=== PATIENT | male | born 1945 | race Caucasian/White ===

== ENCOUNTER 2025-09-15 13:40 | Outpatient (CLI) | payer MEDICARE, SELFPAY ==
--- OUTSIDE RECORDS SUMMARY | 2025-09-14 15:36 | XMS_ITS | Encounter Summary ---
Author Organization [facility] Address [address] [place] [address] Care Team Providers Care Service Loss Control Consultant Name Role Phone Karthikeyan Perez MD Primary Care Provider [phone] Alexis Penn MD Unavailable [phone] Reason for Visit * Physical Medicine (Routine) - Closed Specialty Diagnoses / Procedures Referred By Contac t Referred To Contact PHYSICAL THERAPY / [facility] Physical Therapy Diagnoses Lumbar radiculopathy Procedures OFFICE/OUTPATIENT NEW LOW MDM 30-44 MINUTES OFFICE/OUTPT VISIT,NEW,LEVL IV OFFICE/OUTPT VISIT,NEW,LEVL V OFFICE/OUTPT VISIT,EST,LEVL III OFFICE/OUTPT VISIT,EST,LEVL IV OFFICE/OUTPT VISIT,EST,LEVL V London Crowley MD [address] [place] [address] Phone: tel: fax: [facility] [place] [address] Phone: tel: fax: Referral ID Status Reason Start Date Expiration Date V isits Requested Visits Authorized [id number] Closed Physical Therapy 06/22/2025 06/22/2026 10 10 Encounter Details Date Type Department Care Team (Late st Contact Info) Description 09/14/2025 3:36 PM [facility] Hospital Encounter [facility] [place], [place] [id number] London Crowley MD [address] [place] [address] Kateryna Brownlee DPT 1 [place] [address] Arrived Social History Tobacco Use Types Packs/Day Years Used Date Smoking Tobacco: Former Cigarettes 1 10 Q uit: 1990 Passive Smoke Exposure: Never Smokeless Tobacco: Never Alcohol Use Standard Drinks/Week Comments Yes 3.3 (1 standard drink = 0.6 oz p ure alcohol) 0-2 drinks/week OASIS D0700: Social Isolation Answer Da te Recorded Frequency of experiencing loneliness or isolatio n Never 08/07/2023 OASIS A1250: Transportation Answer Date Recorded Lack of Transportation (Medical) No 08/07/2023 Lack of Transportation (Non-Medical) No 08/07/2023 Patient Unable or Declines to Respond No 08/07/2023 OASIS B1300: Health Literacy Answer Simon e Recorded Frequency of needing help to read materials from doctor or pharmacy Never 08/07/2023 PHQ-2 Answer Date Recorded Patient Health Questionnaire-2 Score 0 12/03/2023 Sex and Gender Information Value Date Recorded Sex Assigned at Male 01/04/2025 1:10 PM EKG MONITOR Legal Sex Male 8:26 PM CDT Gender Identity Not on file Sexual Orientation Straight 02/11/2022 8: 14 AM CDT documented as of this encounter Functional Status * Are you deaf or do you have serious difficulty hearing Answer Date of Assessment Author Status No 07/31/2023 3:00 PM CDT Abby Kruger RN Active * Are you blind or do you have serious difficulty seeing, even when wearing glasses? Answer Date of Assessment Author Status No 07/31/2023 3:00 PM CDT Abby Kruger RN Active * Do you have serious difficulty walking or climbing stairs? Answer Date of Assessment Author Status No 07/31/2023 3:00 PM CDT Abby Kruger RN Active * Do you have difficulty dressing or bathing? Answer Date of Assessment Author Status No 07/31/2023 3:00 PM CDT Abby Kruger RN Active * Because of a physical, mental, or emotional condition, do you have difficulty doing errands alone such as visiting a doctor's office or shopping? Answer Date of Assessment Author Status No 07/31/2023 3:00 PM Abby Meredith RN Active documented as of this encounter Mental Status * Because of a physical, mental, or emotional condition, do you have serious difficulty concentrating, remembering, or making decisions? Answer Entry Date Author Status No 07/31/2023 3:00 PM Abby Meredith RN Active documented in this encounter Progress Notes * Kateryna Brownlee, SHORTYT - 09/14/2025 3:45 PM CST Physical Therapy Visit Note: Patient Name: Sawyer Hutson Diagnosis: Lumbar radiculopathy (primary encounter diagnosis) Hip tightness Decreased rom of lumbar spine Itb syndrome Gait abnormality SUBJECTIVE Therapy Visit Start Time: 1545 Stop Time: 1623 Time Calculation (min): 38 min Treatment Day: 10 Total Approved Visits: 10 visits - re-eval Authorization Expiration Date: MCR Replacement - [facility] Guidelines Therapy Plan of Care: Eval 07/22/2025; STG's 5 visits; LTG's 10 visits Current Therapy Orders: Eval & Treat - 2x5 Diagnosis: Lumbar Radiculopathy Referring Provider: London Crowley MD Consulting Provider: Karthikeyan Perez MD Subjective Note: Patient reports having a good day thus far with minimal and intermittent pain in the R hip. He reports having upcoming laminectomy the day before . Response to prior treatment: good - no adverse events Compliance to Home Program: FAIR - 1-2x/week Reported Falls since last visit: none Medications changes since last visit : none Pain Current Location of Pain: R hip Current Pain Level: 11/12 Other (comments): reports it is aching OBJECTIVE Treatment provided today: Therapeutic Exercise - 66099 Number of Minutes - 68822: 38 Cardio Equipment: NuStep lvl 5 x6 min Exercise: Seated 3-way blue SB rollouts 15x5 sec H ea Exercise: Seated lumbar rotation AROM x10 each direction followed by seated rotation with red TB 10x each side Exercise: HELD TIME - Seated lumbar extension 10x5 sec H ea Exercise: Supine LTR 2 min Exercise: Supine DKTC 2 min - with Red SB under LEs Exercise: Seated hamstring strech 3 x 30 seconds B Exercise: seated upward cross-body chops with red TB x10 each Exercise: seated rows with Red TB 2x10 Exercise: seated shoulder extensions with Red TB 2x10 Exercise: review of log rolling to assume position throughout treatment Home Exercise Program Current Home Exercise Program: cont with current program - no changes made on this date Education Was Education Provided: Yes Topic: importance of log rolling with upcoming laminectomy, importance of consistency of HEP Recipient: Patient Method: Verbal Response: Verbalized understanding, Asked questions Barriers: None ASSESSMENT Assessment Note: Session continued with focus on spine and hip mobility along with new additions for postural strength training to support upright posture. Patient did well with all additions and reported appropriate fatigue. During DKTC and LTR there was noteable grimacing and patient reported increase in R hip pain at those times. Patient denied any persisting increase in pain at end of session. Response to Treatment : fair - intermittent increases in R hip pain PLAN Plan Changes: added resistance band movements for posterior chain and core facilitation to help with postural support Next Visit Plan: Continue to progress postural facilitation as able Total Time Total Time in Minutes: 38 Timed Code Treatment Minutes : 38 MONITOR documented in this encounter Plan of Treatment Upcoming Encounters Date Type Department Care Team (Late st Contact Info) Description 09/16/2025 2:15 PM EKG MONITOR Appointment [facility] [place] [place] [address] London Crowley MD [address] [place] [address] Mary Godfrey, PT 3 [facility] [address] [place] [address] 09/21/2025 1:30 PM EKG MONITOR Appointment [facility] [place] [address] Radha Gramajo, MAT CLEANING MACHINE OPERATOR 09/23/2025 2:15 PM EKG MONITOR Appointment [facility] [address] [facility] [place] [address] Mary Godfrey, PT 3 [facility] [address] [place] [address] 01/04/2026 2:00 PM EKG MONITOR Appointment [facility] [place] [address] Ginny Rahman, PERFORMANCE TEST CONSULTANT 3 [facility] [address] [place] [address] 01/10/2026 1:45 PM CDT Office Visit [facility] THREE [facility], [address] [place] [address] Alexsi Penn MD Three [facility]. [address] [place] [address] Ginny Rahman FNP 3 [facility] [address] [place] [address] 01/26/2026 10:40 AM CDT Office Visit [facility] Mult[facility]pecialty Care - [facility] 3 [facility], [address] [place] [address] Elroy Stout MD 3 [place] [address] 03/13/2026 1:20 PM CDT Office Visit [facility] Multispecialty Care - [facility] 3 [facility], [address] [place] [phone] Vivek Bolivar MD 3 [facility] [place] [address] documented as of this encounter Goals Goal Patient Goal Type Associated Problems Recent Progress Patient-Stated? Author Health - patient able to perform ADLs independently Lifestyle Ancelmo Hung, RN documented as of this encounter Visit Diagnoses Diagnosis Lumbar radiculopathy- Primary Thoracic or lumbosacral neuritis or radiculitis, unspecified Hip tightness Other symptoms referable to pelvic joint Decreased ROM of lumbar spine ITB syndrome Gait abnormality Abnormality of gait documented in this encounter Care Teams Service Loss Control Consultant Relationship Specialty Start Date End Date Karthikeyan Perez MD PCP - General FAMILY PRACTICE 01/22/20 Alexis Penn MD Three [facility]. [address] [place] [address] Consulting Physician CARDIOVASCULAR DISEASE 07/17/23 documented as of this encounter
--- NOTE | ~2025-09-15 | XR_ITS ---
EXAMINATION: XR chest 2V, 09/15/2025 15:16 TREASURY AGENT HISTORY: M51.16 - Intervertebral disc disorders with radiculopathy... COMPARISON: No comparisons available. Technique: 2 views obtained. Findings: The lungs are clear, no effusion. No pneumothorax. Heart is normal size. Mediastinal and hilar contours are within normal limits. Bony thorax no acute abnormality. Impression: No acute cardiopulmonary abnormality. Reviewed, dictated and finalized at location P. SURY AGENT Impression: No acute cardiopulmonary abnormality.
--- OUTSIDE RECORDS SUMMARY | 2025-09-15 14:17 | XMS_ITS | Encounter Summary ---
Author Organization [facility] Address [address] [place] [address] Care Team Providers Care Lead Clinical Research Coordinator Name Role Phone Karthikeyan Perez MD Primary Care Provider [phone] Alexis Penn MD Unavailable [phone] Encounter Details Date Type Department Care Team (Late st Contact Info) Description 01/24/2020 Hospital Follow-up Call [facility] [place] [address] Sasha Novak, Circus Trainer Social History Tobacco Use Types Packs/Day Years Used Date Smoking Tobacco: Former Cigarettes Smokeless Tobacco: Never Sex and Gender Information Value Date Recorded Sex Assigned at Male 01/04/2025 1:10 PM AVIATION SUPPORT EQUIPMENT REPAIRER Legal Sex Male 8:26 PM CDT Gender Identity Not on file Sexual Orientation Straight 02/11/2022 8: 14 AM CDT documented as of this encounter Functional Status * RETIRED Are you deaf or do you have serious difficulty hearing Answer Date of Assessment Author Status No 01/20/2020 1:00 AM CDT Activ e * RETIRED Are you blind or do you have serious difficulty seeing, even when wearing glasses? Answer Date of Assessment Author Status No 01/20/2020 1:00 AM CDT Activ e * Do you have serious difficulty walking or climbing stairs? Answer Date of Assessment Author Status No 01/20/2020 1:00 AM CDT Michelle Orellana RN Active * Do you have difficulty dressing or bathing? Answer Date of Assessment Author Status No 01/20/2020 1:00 AM CDT Michelle Orellana RN Active * Because of a physical, mental, or emotional condition, do you have difficulty doing errands alone such as visiting a doctor's office or shopping? Answer Date of Assessment Author Status No 01/20/2020 1:00 AM Michelle Goins RN Active documented as of this encounter Mental Status * Because of a physical, mental, or emotional condition, do you have serious difficulty concentrating, remembering, or making decisions? Answer Entry Date Author Status No 01/20/2020 1:00 AM Michelle Goins RN Active documented in this encounter Plan of Treatment Upcoming Encounters Date Type Department Care Team (Late st Contact Info) Description 09/16/2025 2:15 PM AVIATION SUPPORT EQUIPMENT REPAIRER Appointment [facility] Outpatient [place] [address] London Crowley MD [address] [place] [address] Mary Godfrey, PT 3 [facility] [address] [place] [address] 09/21/2025 1:30 PM AVIATION SUPPORT EQUIPMENT REPAIRER Appointment [facility] Outpatient [place] [address] Radha Gramajo, ELECTRIC SIGN ASSEMBLER 09/23/2025 2:15 PM AVIATION SUPPORT EQUIPMENT REPAIRER Appointment [facility] Outpatient [place] [address] Mary Godfrey, PT 3 [facility] [address] [place] [address] 01/04/2026 2:00 PM AVIATION SUPPORT EQUIPMENT REPAIRER Appointment [facility] Non Invasive [place] [address] Ginny Rahman FNP 3 [facility] [address] [place] [address] 01/10/2026 1:45 PM CDT Office Visit [facility] [address] [place] [address] Alexis Penn MD Three [facility]. [address] [place], [place] [address] Ginny Rahman, SENIOR ELECTRONICS TECHNICIAN 3 [facility] [address] [place], [place] [address] 01/26/2026 10:40 AM CDT [facility] 3 [facility], [address] [place] [place] [address] Elroy Stout MD 3 [facility] [address] 03/13/2026 1:20 PM CDT [facility] 3 [facility], [address] [place] [address] Vivek Bolivar MD 3 [facility] [place] [address] documented as of this encounter Visit Diagnoses Not on filedocumented in this encounter Care Teams Lead Clinical Research Coordinator Relationship Specialty Start Date End Date Karthikeyan Perez MD PCP - General FAMILY PRACTICE 01/22/20 Alexis Penn MD [facility]. [address] [address] Consulting Physician CARDIOVASCULAR DISEASE 07/17/23 documented as of this encounter
--- OUTSIDE RECORDS SUMMARY | 2025-09-15 14:17 | XMS_ITS | Clinical Summary ---
Author Organization [facility] Address [address] [place] [address] Care Team Providers Care Livestock Inspector Name Role Phone Karthikeyan Perez MD Primary Care Provider [phone] Allergies Active Allergy Reactions Criticality Noted Date Comments No Known Allergies Other (See comments) Low 019 Reaction: Medications aspirin 81 mg chewable tablet Take 1 tablet (81 mg total) by mouth daily Active solifenacin (VESIcare) 10 mg tablet Take 1 tablet (10 mg total) by mouth daily 1 Active amLODIPine (NORVASC) 10 mg tablet Take 1 tablet (10 mg total) by mouth daily 2 Active atorvastatin (LIPITOR) 40 mg tablet Take 1 tablet (40 mg total) by mouth daily 2 Active finasteride (PROSCAR) 5 mg tablet 2 Active hydroCHLOROthiazid e (HYDRODIURIL) 25 mg tablet Take 1 tablet (25 mg total) by mouth daily 2 Active lisinopriL (PRINIVIL,ZESTRIL) 40 mg tablet Take 1 tablet (40 mg total) by mouth daily 2 Active tamsulosin (FLOMAX) 0.4 mg extended release capsule 2 Active levothyroxine (SYNTHROID) 112 mcg tabletIndications: Iatrogenic hypothyroidism TAKE 1 TABLET(112 MCG) BY MOUTH GLOVE FINISHER BEFORE BREAKFAST 90 tablet 1 5 Active Active Problems Problem Noted Date Diagnosed Date BMI 34.0-34.9,adult 06/28/2024 Tachycardia 04/28/2020 Assessment & Plan (04/10/2021 1:02 PM CDT): Tachycardic to 110s in clinic this morning, which is new by my records. Regular rhythm, so suspect sinus, but etiology unclear as he has been 50s and 60s in past visits. No other abnormal exam findings. Will check thyroid function to ensure he is not taking too much thyroid hormone, but if normal, would encourage him to contact his PCP. Pt mentioned that HRs have more recently been in the 90s. Assessment & Plan (04/28/2020 9:31 AM CDT): Tachycardic to 110s in clinic this morning, which is new by my records. Regular rhythm, so suspect sinus, but etiology unclear as he has been 50s and 60s in past visits. No other abnormal exam findings. Will check thyroid function to ensure he is not taking too much thyroid hormone, but if normal, would encourage him to contact his PCP. Pt mentioned that HRs have more recently been in the 90s. 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 Will recheck given today and adjust if necessary, particularly in the setting of his tachycardia. Assessment & Plan (04/28/2020 9:27 AM CDT): TFTs have been normal on this levothyroxine dose in the past. Will recheck given today and adjust if necessary, particularly in the setting of his tachycardia. Assessment & Plan (04/29/2019 9:49 AM CDT): Recent TFTs showed a low normal TSH but slightly high free T4, so I decreased his dose from 137 to 125 mcg daily. Hypertension 06/16/2017 Assessment & Plan (04/10/2021 1:02 PM CDT): Controlled today, though he isn't exactly sure which medications he is on. Assessment & Plan (04/28/2020 9:28 AM CDT): Controlled today, though he isn't exactly sure which medications he is on. Assessment & Plan (04/29/2019 9:50 AM CDT): BP was high when he arrived in clinic, but he felt ok and says he has white coat hypertension. He will follow up on his BP and talk to his PCP if it remains elevated. Resolved Problems Problem Noted Date Diagnosed Date Resolved Date Multinodular goiter 06/16/2017 04/27/20 19 Goiter 04/24/2017 04/27/2019 Encounters Date Type Department Care Team Description 06/29/2025 11:40 AM CDT Office Visit [facility] Endocrinology Metabolism and Lipid [address] [facility] Medicine [address]th [place] [address] [place] [address] Lalitha Lancaster MD BMI 34.0-34.9,adult (Primary Dx); Iatrogenic hypothyroidism from Last 3 Months Surgical History Surgery Date Site/Laterality Comments ME TONSILLECTOMY & ADENOIDEC LIANA <AGE 14 Tonsillectomy With Adenoidectomy - (Added by TW Conv) Medical History Medical History Date Comments Personal history of other en docrine, nutritional and metabolic disease History of hyperthyr oidism - (Added by TW Conv) Family History Medical History Relation Name Comments Dementia Father Family history of dementia - (Added by TW Conv) Stomach cancer Paternal Grandfather Famil y history of malignant neoplasm of stomach - (Added by TW Conv) Relation Name Status Comments Father Paternal Grandfather Social History Tobacco Use Types Packs/Day Years Used Date Smoking Tobacco: Former Tobacco Cessation:Counseling Given: Not Answered Sex and Gender Information Value Date Recorded Sex Assigned at Not on file Legal Sex Male 3:13 PM DIVERSIFIED CROPS II FARMWORKER Gender Identity Not on file Sexual Orientation Not on file Last Filed Vital Signs Vital Sign Reading Time Taken Comments Blood Pressure 142/78 06/29/2025 11:45 AM CDT Pulse 103 06/29/2025 11:45 AM CDT Temperature 36.9 C (98.4 F) 06/29/2025 11:45 AM CDT Respiratory Rate - - Oxygen Saturation 96% 11/12/2017 11:40 AM DIVERSIFIED CROPS II FARMWORKER Inhaled Oxygen Concentration - - Weight 102.1 kg (225 lb) 06/29/2025 11:45 AM CDT Height 173.2 cm (5' 8.2) 06/29/2025 11:45 AM CD T Body Mass Index 34.01 06/29/2025 11:45 AM CDT Plan of Treatment Health Maintenance Due Date Last Done Comments Depression Screening 1945 Fall Risk Assessment 1945 Hepatitis C Screening 1945 DTaP/Tdap/Td Vaccine (1 - Tdap) 1958 Hepatitis B Screening 1965 Abdominal Aortic Aneurysm (A AA) Screen 2012 Well Visit 65+ 2012 Covid-19 Vaccine (4 - 2024-2 6 season) 2025 09/02/2021, 01/17/2021, 12/20/2020 Influenza Vaccine (#1) 2025 , 08/03/2019, 07/22/2019, Additional history exists Zoster Vaccine Completed 06/30/2019, 11/2018, 08/05/2017 Pneumococcal vaccine 65+ Completed 08/03/2019, 07/05 Insurance AET MEDICARE [facility] MEDICARE ADVANTAGE Care Teams Livestock Inspector Relationship Specialty Start Date End Date Karthikeyan Perez MD PCP - General 04/24/17
--- OUTSIDE RECORDS SUMMARY | 2025-09-15 14:17 | XMS_ITS | Encounter Summary ---
Author Organization [facility] Address [address] [place] [address] Care Team Providers Care Proof Coin Collector Name Role Phone Karthikeyan Perez MD Primary Care Provider [phone]- [phone] Alexis Penn MD Unavailable Encounter Details Date Type Department Care Team (Latest Contact Info) Description 09/14/2025 Travel Social History Tobacco Use Types Packs/Day Years [...] Sex Assigned at Male 01/04/2025 1:10 PM FURNACE STOCK INSPECTOR Legal Sex Male 8:26 PM CDT Gender [...] Assessment Author Status No 07/31/2023 3:00 PM DAMIANT Abby Kruger RN Active * Do you have serious difficulty walking or climbing stairs? Answer Date of Assessment Author Status No 07/31/2023 3:00 PM DAMIANT Abby Kruger RN Active * Do you have difficulty dressing or bathing? Answer Date of Assessment Author Status No 07/31/2023 3:00 PM DAMIANT Abby Kruger RN Active * Because of [...] Meredith RN Active documented in this encounter Plan of Treatment Upcoming Encounters Date Type Department Care Team (Late st Contact Info) Description 09/16/2025 2:15 PM FURNACE STOCK INSPECTOR Appointment [facility] [place] [address] London Crowley MD [address] [place] [address] Mary Godfrey, PT 3 [facility] [address] [place] [address] 09/21/2025 1:30 PM FURNACE STOCK [place] [address] Radha Gramajo, CORE EXTRUDER 09/23/2025 2:15 PM FURNACE STOCK INSPECTOR Appointment [facility] [address] [facility] [place] [address] Mary Godfrey, PT 3 [facility] [address] [place] [address] 01/04/2026 2:00 PM FURNACE STOCK INSPECTOR Appointment [facility] Non Invasive Cardiology [address] [facility] [place] [address] Ginny Rahman FNP 3 [facility] [address] [place] [address] 01/10/2026 1:45 PM CDT Office Visit [facility] THREE [facility], [address] [place] [address] Alexis Penn MD Three [facility]. [address] [place] [address] Ginny Rahman FNP 3 [facility] [address] [place] [address] 01/26/2026 10:40 AM CDT Office Visit [facility]ty Care - [facility] 3 [facility], [address] [place] [phone] Elroy Stout MD 3 [place] [address] 03/13/2026 1:20 PM CDT Office Visit [facility]pecialty Care - [facility] 3 [facility], [address] [place] [phone] Vivek Bolivar MD [address] [facility] [place], [place] [id number] documented as of this encounter Goals Goal Patient Goal Type Associated Problems Recent Progress Patient-Stated? Author Health - patient able to perform ADLs independently Lifestyle No Ancelmo Gilliland, RN documented as of this encounter Visit Diagnoses Not on filedocumented in this encounter Care Teams Proof Coin Collector Relationship Specialty Start Date End Date Karthikeyan Perez MD PCP - General FAMILY PRACTICE 01/22/20 Alexis Penn MD Three [facility]. [address] [place] [address] Consulting Physician CARDIOVASCULAR DISEASE 07/17/23 documented as of this encounter
--- OUTSIDE RECORDS SUMMARY | 2025-09-15 14:17 | XMS_ITS | Clinical Summary ---
Author Organization [facility] Address [address] [place] [address] Care Team Providers Care Patient Care Nursing Assistant Name Role Phone Karthikeyan Perez MD Primary Care Provider [phone] Alexis Penn MD Unavailable [phone] Allergies No known active allergies Medications atorvastatin 40 MG tabletIndicatio ns:HLD Take 1 tablet (40 mg total) by mouth nightly at bedtime. 30 tablet 01/22/2020 Active levothyroxine (SYNTHROID) 112 MCG tabletIndicatio ns:Thyroid Take 1 tablet (112 mcg total) by mouth daily. Indications: Thyroid 10/24/2022 Active omeprazole (PRILOSEC) 40 MG capsuleIndicati ons:GERD Take 1 capsule (40 mg total) by mouth daily. Indications: GERD 12/26/2022 Active aspirin 81 MG chewable tablet Chew 1 tablet (81 mg total) by mouth daily. Active hydroCHLOROthia zide (HYDRODIURIL) 25 MG tablet Take 1 tablet (25 mg total) by mouth daily. 10/21/2023 Active lisinopril (PRINIVIL) 40 MG tablet Take 1 tablet (40 mg total) by mouth daily. 10/21/2023 Active solifenacin succinate (VESICARE) 10 MG Tab Take 1 tablet (10 mg total) by mouth daily. 10/29/2023 Active finasteride (PROSCAR) 5 MG tablet Take 1 tablet (5 mg total) by mouth daily. 10/29/2023 Active tamsulosin (FLOMAX) 0.4 MG Cap Take 1 capsule (0.4 mg total) by mouth daily. 10/29/2023 Active amLODIPine (NORVASC) 5 MG tablet Take 1 tablet (5 mg total) by mouth daily. 01/19/2024 Active Active Problems Problem Noted Date Diagnosed Date S/P total hip arthroplasty 08/01/2023 Status post total replacement of right hip 07/31 Primary osteoarthritis of right hip 06/13/2023 Overview (06/13/2023): Added automatically from request for surgery [id number] Difficulty swallowing 01/29/2023 Overview (01/29/2023): Added automatically from request for surgery [id number] Tachycardia 04/28/2020 Overview (06/19/2021): Last Assessment & Plan: Tachycardic to 110s in clinic this morning, [...] have more recently been in the 90s. Altered mental status, unspecified 01/20/2020 Iatrogenic hypothyroidism 11/24/2017 Overview (03/15/2020): Last Assessment & Plan: Recent TFTs showed a low normal TSH but slightly high free T4, so I decreased his dose from 137 to 125 mcg daily. Hypertension 06/16/2017 Overview (03/15/2020): Last Assessment & Plan: BP was high when he arrived in clinic, but he felt ok and says he has white coat hypertension. He will follow up on his BP and talk to his PCP if it remains elevated. Encounters Date Type Department Care Team Description 09/14/2025 3:36 PM IOS SOFTWARE ENGINEER Hospital Encounter [facility] [place] [address] [place] [address] London Crowley MD Ratermann, Madeline R, DPT Arrived 09/14/2025 Travel 09/13/2025 Telephone [facility] [address] [place] [address] Alexis Penn MD Surgical Clearance 09/12/2025 1:40 PM IOS SOFTWARE ENGINEER Office Visit [facility] [address] [place] [address] Vivek Bolivar MD Follow Up 09/12/2025 Travel 09/08/2025 2:11 PM IOS SOFTWARE ENGINEER - 09/08/2025 11:59 PM IOS SOFTWARE ENGINEER Hospital En[facility] [place] [address] London Crowley MD McPherson, Abigail E, PT Discharge Disposition: Home or Self Care (Routine Discharge) 09/08/2025 Travel 08/31/2025 2:09 PM CDT - 08/31/2025 11:59 PM CDT Hospital Encounter [facility] [place] [address] London Crowley MD Lewis, Molly A, PATTERN CLERK Discharge Disposition: Home or Self Care (Routine Discharge) 08/31/2025 Travel 08/29/2025 2:10 PM CDT - 08/29/2025 11:59 PM CDT Hospital Encounter [facility] [place] [place] [address] London Crowley MD Witte, Lauren E, PATTERN CLERK Discharge Disposition: Home or Self Care (Routine Discharge) 08/29/2025 Travel 08/26/2025 2:13 PM CDT - 08/26/2025 11:59 PM CDT [facility] [place] [place] [address] London Crowley MD Lewis, Molly A, PATTERN CLERK Discharge Disposition: Home or Self Care (Routine Discharge) 08/26/2025 Travel 08/24/2025 1:53 PM CDT - 08/24/2025 11:59 PM CDT [facility] [place] [address] London Crowley MD Lewis, Molly A, PATTERN CLERK Discharge Disposition: Home or Self Care (Routine Discharge) 08/24/2025 Travel 08/11/2025 1:24 PM CDT - 08/11/2025 11:59 PM CDT [place] [address] London Crowley MD Witte, Lauren E, PATTERN CLERK Discharge Disposition: Home or Self Care (Routine Discharge) 08/11/2025 Travel 08/08/2025 2:12 PM CDT - 08/08/2025 11:59 PM CDT [place] [address] London Crowley MD Witte, Lauren E, PATTERN CLERK Discharge Disposition: Home or Self Care (Routine Discharge) 08/08/2025 Travel 08/04/2025 3:41 PM CDT - 08/04/2025 11:59 PM CDT Hospital Encounter [facility] [place] [address] Mary Godfrey, PT Discharge Disposition: Home or Self Care (Routine Discharge) 08/04/2025 Travel 08/03/2025 Telephone [facility] [address] [place] [address] Sharan Jean Baptiste PA Results 08/02/2025 Telephone [facility] [address] [place] [address] London Crowley MD Results 07/22/2025 12:39 PM CDT - 07/22/2025 11:59 PM CDT Hospital Encounter [facility] [place] [address] London Crowley MD McPherson, Abigail E, PT Discharge Disposition: Home or Self Care (Routine Discharge) 07/22/2025 11:30 AM CDT - 07/22/2025 12:38 PM CDT Hospital Encounter [facility] [address] London Crowley MD Discharge Disposition: Home or Self Care (Routine Discharge) 07/22/2025 Travel 06/22/2025 2:00 PM CDT Office Visit [facility] Medical [facility] [address] [place] [address] London Crowley MD Follow Up (Right hip ) 06/22/2025 Travel 06/17/2025 Orders Only [facility] [address] [place] [address] London Crowley MD from Last 3 Months Immunizations Immunization Administration Dates Next Due FLUAD (IIV, Trivalent, 0.5 M L Pre-filled Syringe) 08/03/2019 Fluad influenza vaccine, Lan drivalent (aIIV4), Inactivated, adjuvanted, preservative free, 0.5 mL,IM use 08/03/2019 Fluzone High Dose (IIV, trivalent, 0.5mL) 2018,07/29/2018 Fluzone High Dose - >Age 65 (Prefilled Syringe) 07/22/2019,07/29/2018 Influenza (Generic) 08/10/2020,07/29/2017 MODERNA COVID-19 (12+) MRNA, LNP-S, PF, 100 MCG/ 0.5 ML DOSE 09/02/2021,01/17/2021,12/20/2020 Pneumococcal (Pneumovax 23) 08/03/2019 Pneumococcal (Prevnar 13) 07/29/2018 Shingrix 06/30/2019,05/03/2019 Zoster (Zostavax) [address] Unt/0.65Ml 06/30/2019,,08/05/2017 Family History Medical History Relation Comments Hypertension Brother Hypertension Father Hypertension Sister Relation Status Comments Brother Father Alive Mother Sister Social History Tobacco Use Types Packs/Day Years Used Date Smoking Tobacco: Former Cigarettes 1 10 Q uit: 1990 Passive Smoke Exposure: Never Smokeless Tobacco: Never Tobacco Cessation:Counseling Given: Not Answered Alcohol Use Standard Drinks/Week Comments Yes 3.3 [...] Sex Assigned at Male 01/04/2025 1:10 PM IOS SOFTWARE ENGINEER Legal Sex Male 8:26 PM CDT Gender Identity Not on file Sexual Orientation Straight 02/11/2022 8: 14 AM CDT Last Filed Vital Signs Vital Sign Reading Time Taken Comments Blood Pressure 138/84 09/12/2025 1:34 PM IOS SOFTWARE ENGINEER Pulse 90 09/12/2025 1:34 PM IOS SOFTWARE ENGINEER Temperature 36.8 C (98.3 F) 09/12/2025 1:34 PM IOS SOFTWARE ENGINEER Respiratory Rate 17 09/08/2023 1:14 PM IOS SOFTWARE ENGINEER Oxygen Saturation 99% 09/12/2025 1:34 PM IOS SOFTWARE ENGINEER Inhaled Oxygen Concentration - - Weight 105.3 kg (232 lb 3.2 oz) 09/12/2025 1:34 PM IOS SOFTWARE ENGINEER Height 175.3 cm (5' 9) 09/12/2025 1:34 PM IOS SOFTWARE ENGINEER Body Mass Index 34.29 09/12/2025 1:34 PM IOS SOFTWARE ENGINEER Plan of Treatment Upcoming Encounters Date Type Department Care Team (Late st Contact Info) Description 09/16/2025 2:15 PM IOS SOFTWARE ENGINEER Appointment [facility] [place] [address] London Crowley MD [address] [place] [address] Mary Godfrey, PT [address] [facility] [address] [place] [address] 09/21/2025 1:30 PM IOS SOFTWARE ENGINEER Appointment [facility] [place] [place] [address] Radha Gramajo, PATTERN CLERK 09/23/2025 2:15 PM IOS SOFTWARE ENGINEER Appointment [facility] [place] [place] [address] Mary Godfrey, PT 3 [facility] [address] [place] [address] 01/04/2026 2:00 PM IOS SOFTWARE ENGINEER Appointment [facility] [place] [address] Ginny Rahman FNP 3 [facility] [address] [place] [address] 01/10/2026 1:45 PM CDT [facility] [address] [facility] [address] [place] [address] Alexis Penn MD Three [facility]. [facility] [address] [place] [address] Ginny Rahman FNP [address] [facility] [address] [place] [address] 01/26/2026 10:40 AM CDT Office Visit [facility] - [address], [address] [place] [phone] Elroy Stout MD [address] [place] [address] 03/13/2026 1:20 PM CDT Office Visit [facility] - [address], [address] [place] [phone] Vivek Bolivar MD [address] [place] [address] Health Maintenance Due Date Last Done Comments Hepatitis C 1963 DTaP, Tdap and Td Vaccines (1 - Tdap) 1966 Annual Medicare Wellness Visit 2012 RSV Immunization or 60+ Years (1 - 1-dose 75+ series) 2022 PHQ-2 (Physician [place]) 11/03/2024 12/03/2023 COVID-19 Vaccine ( season) 2025 09/02/2021, 01/17/2021, 12/20/2020 Influenza Adult (#1) 2025 08/10/2020, 08/03/2019, 08/03/2019, Additional history exists Zoster Vaccines Completed 06/30/2019, 06/04, 05/03/2019, Additional history exists Pneumococcal Vaccine: 50+ Years Completed 08/03/2019, 07/29/2018 Hepatitis A Vaccines Aged Out No long er eligible based on patient's age to complete this topic Meningococcal B Vaccine Aged Out No l onger eligible based on patient's age to complete this topic Meningococcal Vaccine Aged Out No merlin sparkle eligible based on patient's age to complete this topic RSV Immunizations Under 20 Months Aged Out No longer eligible based on patient's age to complete this topic Goals Goal Patient Goal Type Associated Problems Recent Progress Patient-Stated? Author Health - patient able to perform ADLs independently Lifestyle No Ancelmo Gilliland RN Medical Devices Implanted Type Area Stonecutter Hand Device Identifier Shelf Expiration Date Model / Serial / Lot Shell Acetabular Depuy 56mm - [id number] Implanted:Qty : 1 on 07/31/2023 by Lnodon Crowley MD at [facility] Hip Components Right: Hip DEPUY [id number] 05/02/2033 [id number] / / [id number] Liner Depuy Acetabular Altrx Neut 36x56 - [id number] Implanted:Qty : 1 on 07/31/2023 by London Crowley MD at [facility] Hip Components Right: Hip DEPUY [id number] 05/02/2028 [id number] / / [id number] Actis Femoral Stem Implanted:Qty : 1 on 07/31/2023 by London Crowley MD at [facility] Hip Components Right: Hip DEPUY SYNTHES [id number] 12/31/2032 [id number] / / [id number] Head Depuy Femoral Delta 36mm +1.5 - [id number] Implanted:Qty : 1 on 07/31/2023 by London Crowley MD at [facility] Hip Components Right: Hip DEPUY [id number] 07/03/2028 [id number] / / [id number] Procedures Procedure Name Priority Date/Time Associated Diagnosis Comments MRI LUMB SPINE WO CON Routine 07/22/2025 12:28 PM CDT Lumbar radiculopathy OXR PELVIS AP+RT HIP 2V Routine 06/22/2025 2:06 PM CDT Pain of right hip from Last 3 Months Results * MRI LUMB SPINE WO CON (07/22/2025 12:28 PM CDT) Anatomical Region Laterality Modality Spine Magnetic Resonan ce 08/02/2025 4:01 PM CDT Impressions 08/02/2025 4:24 PM CDT =====IMPRESSION:===== IMPRESSION: 1. No acute lumbar spine fracture or malalignment. 2. Most prominent spinal canal stenosis at L4-L5 rated severe with additional moderately severe stenosis at L3-L4 and moderate stenosis at L2-L3. 3. Most prominent foraminal stenosis rated only mild on the right at L2-L3 and on the left at L3-L4. 4. Multilevel facet hypertrophy and ligamentum flavum thickening. 5. Multilevel degenerative disc disease with individual levels as above. Ordered By: LONDON CROWLEY Interpreted By: Dean Moore MD, 08/02/2025 4:01 PM Narrative 08/02/2025 4:24 PM CDT [address] [address] Exam: MRI lumbar spine without contrast Exam Date/Time: 07/22/2025 12:11 PM Indication: 79 male. Lumbar radiculopathy . Chronic back pain 6 months. Radiation to right hip. Pain and limited range of motion . Comparison: None Technique: Multiplanar, multisequence MR imaging of the lumbar spine without contra. Imaging performed on a 1.35 [place] open field MRI might. MR findings: 5 nonrib-bearing lumbar type vertebral bodies. Normal lumbar lordosis. Trace, 1 to 2 mm degenerative retrolisthesis of L1 on L2 and, L2 on L3 and L3 on L4. Heterogeneous fatty marrow signal replacement. No concerning focal lesion. Vertebral body heights are preserved. Conus terminates at T12. Cauda equina nerve roots unremarkable. Multilevel degenerative change involving the disks and endplates and posterior elements. T12-L1: Degenerative disc desiccation. Mild diffuse, moderate posterior narrowing. Moderate ventral endplate spurring. Tiny circumferential disc bulge. Mild facet hypertrophy and ligamentum flavum thickening. No spinal canal or foraminal stenosis L1-L2: Degenerative disc desiccation and moderate posterior disc narrowing. Bulky ventral endplate spurring. Trace retrolisthesis. Minimal circumferential disc bulge indenting the ventral thecal sac. Moderate facet hypertrophy and ligamentum flavum thickening. Dorsal epidural fat prominence. Mild spinal canal stenosis. Bilateral subarticular zone narrowing. No foraminal stenosis. L2-L3: Degenerative disc desiccation and severe posterior disc narrowing. Moderate circumferential endplate spurring. Trace retrolisthesis. Dorsal epidural fat prominence. Small circumferential disc bulge indenting the ventral thecal sac. Moderate right, moderately severe left facet hypertrophy. Prominent ligamentum flavum thickening. Moderate spinal canal, thecal sac stenosis, prominent subarticular zone narrowing. Minimal left, mild right foraminal spinal. L3-L4: Disc desiccation, posterior centered narrowing. Yatv-ni-dromthur endplate spurring. Trace retrolisthesis. Dorsal epidural fat prominence. Minimal circumferential disc bulge indenting the ventral thecal sac. Bilateral moderate facet hypertrophy and prominent ligamentum flavum thickening. Moderately severe spinal canal AP stenosis. Prominent subarticular zone stenosis. Mild left foraminal stenosis. L4-L5: Disc desiccation. Moderate posterior centered disc narrowing.. Small circumferential disc bulge with superimposed slightly broad-based midline and right para midline moderate disc protrusion. Possible minimal superior migration representing extruded component. Moderate right, moderately severe left facet hypertrophy and left facet joint effusion. Prominent ligamentum flavum thickening. Dorsal epidural fat prominence. Severe spinal, thecal sac stenosis particularly on the right. Right greater than left subarticular and lateral recess narrowing. Likely compromise of the right descending L5 nerve root. No significant foraminal stenosis. L5-S1: Disc desiccation. Mild posterior disc narrowing. No significant herniation. Poorly visualized degenerative facet sclerosis and hypertrophy.. No spinal or foraminal stenosis. There is moderate bilateral symmetric paraspinal muscle fatty atrophy. Procedure Note Dean Moore MD - 08/02/2025 [facility] [address] [place], [place] [address] Exam: MRI lumbar spine without contrast Exam Date/Time: 07/22/2025 12:11 PM Indication: 79 male. Lumbar radiculopathy . Chronic back pain 6 months.Radiation to right hip. Pain and limited range of motion . Comparison: None Technique: Multiplanar, multisequence MR imaging of the lumbar spinewithout contra. Imaging performed on a 1.35 [place] open field MRI might. MR findings: 5 nonrib-bearing lumbar type vertebral bodies. Normal lumbar lordosis. Trace, 1 to 2 mm degenerative retrolisthesis of L1 on L2 and, L2 on L3 andL3 on L4. Heterogeneous fatty marrow signal replacement. No concerning focal lesion.Vertebral body heights are preserved. Conus terminates at T12. Cauda equina nerve roots unremarkable. Multilevel degenerative change involving the disks and endplates andposterior elements. T12-L1: Degenerative disc desiccation. Mild diffuse, moderate posteriornarrowing. Moderate ventral endplate spurring. Tiny circumferential discbulge. Mild facet hypertrophy and ligamentum flavum thickening. No spinalcanal or foraminal stenosis L1-L2: Degenerative disc desiccation and moderate posterior discnarrowing. Bulky ventral endplate spurring. Trace retrolisthesis. Minimalcircumferential disc bulge indenting the ventral thecal sac. Moderatefacet hypertrophy and ligamentum flavum thickening. Dorsal epidural fatprominence. Mild spinal canal stenosis. Bilateral subarticular zonenarrowing. No foraminal stenosis. L2-L3: Degenerative disc desiccation and severe posterior disc narrowing.Moderate circumferential endplate spurring. Trace retrolisthesis. Dorsalepidural fat prominence. Small circumferential disc bulge indenting theventral thecal sac. Moderate right, moderately severe left facethypertrophy. Prominent ligamentum flavum thickening. Moderate spinalcanal, thecal sac stenosis, prominent subarticular zone narrowing. Minimalleft, mild right foraminal spinal. L3-L4: Disc desiccation, posterior centered narrowing. Tbup-cq-bdxrktpyxmimpiep spurring. Trace retrolisthesis. Dorsal epidural fat prominence.Minimal circumferential disc bulge indenting the ventral thecal sac.Bilateral moderate facet hypertrophy and prominent ligamentum flavumthickening. Moderately severe spinal canal AP stenosis. Prominentsubarticular zone stenosis. Mild left foraminal stenosis. L4-L5: Disc desiccation. Moderate posterior centered disc narrowing..Small circumferential disc bulge with superimposed slightly broad-basedmidline and right para midline moderate disc protrusion. Possible minimalsuperior migration representing extruded component. Moderate right,moderately severe left facet hypertrophy and left facet joint effusion.Prominent ligamentum flavum thickening. Dorsal epidural fat prominence.Severe spinal, thecal sac stenosis particularly on the right. Rightgreater than left subarticular and lateral recess narrowing. Likelycompromise of the right descending L5 nerve root. No significant foraminalstenosis. L5-S1: Disc desiccation. Mild posterior disc narrowing. No significantherniation. Poorly visualized degenerative facet sclerosis andhypertrophy.. No spinal or foraminal stenosis. There is moderate bilateral symmetric paraspinal muscle fatty atrophy. =====IMPRESSION:===== IMPRESSION: 1. No acute lumbar spine fracture or malalignment. 2. Most prominent spinal canal stenosis at L4-L5 rated severe withadditional moderately severe stenosis at L3-L4 and moderate stenosis atL2-L3. 3. Most prominent foraminal stenosis rated only mild on the right atL2-L3 and on the left at L3-L4. 4. Multilevel facet hypertrophy and ligamentum flavum thickening. 5. Multilevel degenerative disc disease with individual levels asabove. Ordered By: LONDON CROWLEY Interpreted By: Dean Moore MD, 08/02/2025 4:01 PM us London Crowley MD MRI Final Result * OXR PELVIS AP+RT HIP 2V (06/22/2025 2:06 PM CDT) Anatomical Region Laterality Modality Pelvis, Hip Radiographic Kajal ging Narrative 06/27/2025 9:06 AM CDT PROCEDURE: OXR PELVIS AP+RT HIP 2V VIEWS: 4 DATE: 06/22/25 CLINICAL INDICATION: FINDINGS: Uncemented total hip arthroplasty in place. 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 No significant periprosthetic lucency. No fractures. Severe left hip arthritis is present. IMPRESSION: Total hip arthroplasty. London Crowley MD GENERAL IMAGING Final Result from Last 3 Months Insurance [employer] MEDICARE Advance Directives * Full Code (Latest Code Status on File) Date Activated Date Inactivated Comments 08/04/2023 11:28 AM * Full Code Date Activated Date Inactivated Comments 07/31/2023 3:05 PM 08/03/2023 12:23 PM * Full Code Date Activated Date Inactivated Comments 01/24/2020 1:16 PM 03/20/2023 6:29 AM * Full Code Date Activated Date Inactivated Comments 01/20/2020 12:36 AM 01/22/2020 1:33 PM Care Teams Patient Care Nursing Assistant Relationship Specialty Start Date End Date Karthikeyan Perez MD PCP - General FAMILY PRACTICE 01/22/20 Alexis Penn MD [address] [address] Consulting Physician CARDIOVASCULAR DISEASE 07/17/23
--- OUTSIDE RECORDS SUMMARY | 2025-09-15 14:17 | XMS_ITS | Encounter Summary ---
Author Organization [facility] Address [address] [place] [address] Care Team Providers Care Vp Biology Name Role Phone Karthikeyan Perez MD Primary Care Provider [phone] Alexis Penn MD Unavailable [phone] Encounter Details Date Type Department Care Team (Late st Contact Info) Description 06/17/2022 Abstract [facility] [address] Ajay Davila MA Social History Tobacco Use Types Packs/Day Years Used Date Smoking Tobacco: Former Cigarettes Smokeless Tobacco: Never Alcohol Use Standard Drinks/Week Comments Yes 0 (1 standard drink = 0.6 oz pur e alcohol) rare PHQ-2 Answer Date Recorded PHQ-2 Score - If the patient scores above 3, please move on to questions 3-9 0 04/09/2022 Sex and Gender Information Value Date Recorded Sex Assigned at Male 01/04/2025 1:10 PM HEAD REFRIGERATION ENGINEER Legal Sex Male 8:26 PM CDT Gender Identity Not on file Sexual Orientation Straight 02/11/2022 8: 14 AM CDT COVID-19 Exposure Response Date Recorded In the last 10 days, have yo u been in contact with someone who was confirmed or suspected to have Coronavirus/COVID-19? No / Unsure 06/17/2022 4:09 PM CDT documented as of this encounter Functional [...] 01/20/2020 1:00 AM Michelle Goins RN Active * Do you have difficulty dressing or bathing? Answer Date of Assessment Author Status No 01/20/2020 1:00 AM Michelle Goins RN Active * Because of a physical, [...] st Contact Info) Description 09/16/2025 2:15 PM HEAD REFRIGERATION ENGINEER Appointment [facility] [place] [address] London Crowley MD [address] [place] [address] Mary Godfrey, PT 3 [facility] [address] [facility] [place] [address] 09/21/2025 1:30 PM HEAD REFRIGERATION ENGINEER Appointment [facility] [place] [address] Radha Gramajo, CONSUMER LOAN PROCESSOR 09/23/2025 2:15 PM HEAD REFRIGERATION ENGINEER Appointment [facility] [place] [address] Mary Godfrey, PT 3 [facility] [address] [place] [address] 01/04/2026 2:00 PM HEAD REFRIGERATION ENGINEER Appointment [facility] Non Invasive Cardiology [address] [place] [address] Ginny Rahman FNP 3 [facility] [address] [place] [address] 01/10/2026 1:45 PM CDT Office Visit [facility] THREE [facility], [address] [place] [address] Alexis Penn MD Three [facility]. [address] [place] [address] Ginny Rahman FNP 3 [facility] [address] [place] [address] 01/26/2026 10:40 AM CDT Office Visit [facility] - [facility] 3 [facility], [address] [place] [id number] Elroy Stout MD 3 [facility] [place] [address] 03/13/2026 1:20 PM CDT [facility] 3 [facility], [address] [place] [phone] Vivek Bolivar MD 3 [facility] [place] [address] documented as of this encounter Procedures Procedure Name Priority Date/Time Associated Diagnosis Comments COMPREHENSIVE METABOLIC PANEL Routine 01/05/2025 LIPID PANEL Routine 01/05/2025 CBC, MANUAL DIFF Routine 01/05/2025 THYROID STIM HORMONE TSH Routine 01/05/2025 CBC (OUTSIDE LAB) Routine 06/14/2022 COMPREHENSIVE METABOLIC PANEL Routine 06/14/2022 LIPID PANEL Routine 06/14/2022 CK (CPK) Routine 06/14/2022 documented in this encounter Results * (ABNORMAL) COMPREHENSIVE METABOLIC PANEL (01/05/2025) SODIUM S/P/B 135 GLUCOSE 100 mg/dL AST 21 BUN 26 CREATININE S/P/B 1.44(A) 0.7 - 1.3 CALCIUM S/P/B 9.2 POTASSIUM S/P/B 4.2 CHLORIDE S/P/B 98 ALT 20 GFR ESTIMATE 50 us Default History Genericprovider LABORATORY Edited Result - Final * LIPID PANEL (01/05/2025) CHOLESTEROL 87 TRIGLYCERIDES 64 HDL 43 LDL (CALCULATED) 30 us Default History Genericprovider LABORATORY Edited Result - Final * CBC, MANUAL DIFF (01/05/2025) WBC 8.3 HGB 13.5 HCT 39.9 PLT 273 Default History Genericprovider LABORATORY Edited Result - Final * THYROID STIM HORMONE TSH (01/05/2025) TSH 0.946 Default History Genericprovider LABORATORY Edited Result - Final * CK (CPK) (06/14/2022) CPK 85 06/14/2022 us Doc [facility] Abstract LABORATORY Final Result * LIPID PANEL (06/14/2022) Pathologist [facility] CHOLESTEROL 84 HDL 41 TRIGLYCERIDES 74 LDL (CALCULATED) 27 06/14/2022 us Doc [facility] Abstract LABORATORY Final Result * CBC (OUTSIDE LAB) (06/14/2022) Pathologist [facility] WBC 5.7 HGB 14.8 HCT 43.5 PLT 222 06/14/2022 us Doc [facility] Abstract LAB-OUTSIDE/ABSTRACTED Final Result * COMPREHENSIVE METABOLIC PANEL (06/14/2022) Pathologist [facility] SODIUM S/P/B 138 POTASSIUM S/P/B 4.1 CO2 25 CHLORIDE S/P/B 100 GLUCOSE 109 mg/dL CALCIUM S/P/B 9.3 BUN 14 CREATININE S/P/B 0.97 0.7 - 1.3 EGFR NON-AFR. AMER. 82 <=90 ALKALINE PHOSPHATASE S/P/B 101 ALT 15 AST 21 BILIRUBIN TOTAL S/P/B 1.4 ALBUMIN S/P/B 4.5 3.5 - 5.0 TOTAL PROTEIN S/P/B 6.6 GLOBULIN 2.1 06/14/2022 us Doc [facility] Abstract LABORATORY Final Result documented in this encounter Visit Diagnoses Not on filedocumented in this encounter Care Teams Vp Biology Relationship Specialty Start Date End Date Karthikeyan Perez MD PCP - General FAMILY PRACTICE 01/22/20 Alexis Penn MD [place] [phone] (Work) Consulting Physician CARDIOVASCULAR DISEASE 07/17/23 documented as of this encounter
--- NOTE | 2025-09-15 14:56 | ECG_ITS ---
Test Date: 2025-09-15 15:08:50 Measurements Intervals [place] Rate: 65 P: 65 TN: 249 QRS: -18 QRSD: 98 T: 30 QT: 399 QTc: 418 Interpretive Statements SINUS RHYTHM WITH FIRST DEGREE AV BLOCK VOLTAGE CRITERIA FOR LVH [MEETS CRITERIA IN ONE OF: R(aVL), S(V1), R(V5), R(V5/V6)+S(V1)] ABNORMAL ECG No previous ECG available for comparison Electronically Signed On 09-16-2025 12:54:44 TITLE I DIRECTOR by Karthikeyan Machado M.D.
[2025-09-15 15:25] LABS: Hematocrit 36.9 % (42.0-52.0); Hemoglobin 12.9 g/dL (14.0-18.0); Mean Corpuscular HGB Conc 35.0 g/dl (32-36); Mean Corpuscular Hemoglobin 32.3 pg (26-34); Mean Corpuscular Volume 92.5 fl (80-100); Platelet Count Result 263 k/mm3 (150-375); Red Blood Count 3.99 M/mm3 (4.6-6.20); White Blood Count 7.7 K/mm3 (4.5-10.0)
[2025-09-15 15:26] LABS: Add Urine Microscopic? NO; Appearance Urine Clear (Clear); Glucose Urine UA Negative (Negative); Leukocyte Esterase Ur Negative LEU/UL (Negative); Nitrate Urine Negative (Negative); Specific Grav Ur 1.014 (1.001-1.035)
[2025-09-15 15:36] LABS: INR 1.1; Prothrombin Time 14.5 Seconds (11.1-14.7)
[2025-09-15 15:37] LABS: Partial Thromboplastin Time 31.4 Seconds (22.3-36.8)
== END 2025-09-15 13:41 | disposition home or self-care (01) ==
LOC: ANHSURGERY 13:44
PROVIDERS: PCP Family Medicine; Visit Provider Neurological Surgery
DX: Z01.818 Encounter for other preprocedural examination (principal); M51.16 Intervertebral disc disorders with radiculopathy, lumbar region; R94.31 Abnormal electrocardiogram [ECG] [EKG]
CPT/HCPCS: 36415; 71046; 81003; 85027; 85610; 85730; 93005

== ENCOUNTER 2025-09-28 01:19 | Day surgery (SDC) | payer MEDICARE, SELFPAY ==
[2025-09-15 14:08] VITALS: BP 122/71; PULSE 67; RESP 16; TEMP 36.6; O2SAT 97; BMI 36.0
--- NOTE | 2025-09-15 14:31 | PC.NURSE ---
[facility] has started construction of its new state of the art ER which will open Spring 2026. With this, we anticipate parking may be a challenge for some our surgical patients and families. Parking spaces are limited but are available for all Surgical, obstetrics, and ER patients sharing this lot. If you arrive and find you are having a hard time finding a parking space, please note that we understand the challenges, please drive around the hospital and park near Hospital Entrance 1. When you enter this entrance, you can ask a volunteer to direct or take you back to the surgical waiting area to check in. We appreciate everyone?s understanding of these expected challenges while we build for your future. Report to the Outpatient Waiting Room, entrance under the green pavilion located off [address], at time __6:00AM___ on date ___09/28/25___. Planned Procedure Time: ___7:30AM___.? Time changes happen often and if your time is changed the preop area will call you the afternoon before. - You and your visitor will be asked to self-screen and do not enter if you have any COVID symptoms. Please call surgeon if you need to reschedule. - A mask is optional within the hospital at this time. Patients may have clear liquids (water, carbonated beverages, clear teas, apple juice) until 3 hours prior to surgery (4:30AM) with a maximum of 20 ounces. - No food from midnight until time of surgery and no smoking, or chewing tobacco (or any form of nicotine). No chewing gum, candy or mints. Take only the following medications with a SIP of water on the morning of surgery: ____AMLODIPINE, LEVOTHYROXINE DO NOT STOP ANY OF YOUR OTHER PRESCRIPTION MEDICATIONS PRIOR TO SURGERY EXCEPT THE FOLLOWING Hold all vitamins and supplements for 3 days per anesthesiologist. Medications to discontinue per physician ___HOLD ASPIRIN 7 DAYS PRE-OP PER DR QUINTERO Date to take last dose 09/19/25 Please no make-up, nail tanzanian, hairspray, perfume, deodorant, or body powder the day of surgery.? No jewelry (including any body piercings) or valuables the day of surgery, leave them at home.? Please take a shower or bath the night before, or the morning of, surgery with an antibacterial soap.? Wear comfortable, loose fitting clothing.? - Jewelry must be removed prior to entering the operating room.? Rings and piercings that are not removed may be cut off. - The hospital will not accept responsibility for valuables.? - Please leave all valuables, including medications, at home the day of surgery. If you are going home after surgery, a licensed after school driver must drive you home.? - NO public transportation without another adult if you receive anesthesia. - We recommend that an adult stay with you for 24 hours following discharge. - We also recommend that you do not drive, make important decision, drink alcoholic beverages, or take any drugs that were not prescribed by your health care provider for at least 24 hours after your discharge time. Follow any additional instructions given to you from your surgeon. Telephone instructions given to ____PATIENT & SIGNIFICANT OTHER and asked if any additional questions and then verbalized understanding. Patient advised to call surgeon office or pre surgery nurse liaison [phone] if any additional questions.
[2025-09-28] VITALS (14 sets, daily range): BP systolic 92–149; BP diastolic 52–80; PULSE 66–88; RESP 10–20; TEMP 36.2–36.7; O2SAT 93–100; BMI 35.4
--- NOTE | ~2025-09-28 | XR_ITS ---
XR fluoroscopy no charge Indication: L3-4, L4-5 laminectomies with right L4-5 microdiscectomy TECHNIQUE: Fluoroscopy used during L3-4, L4-5 laminectomies with right L4-[address] Tres Lainez MD on 09/28/2025. 5 seconds with 2 fluoroscopic images captured. FINDINGS: Correlate with procedure note. IMPRESSION: Fluoroscopy used during L3-4, L4-5 laminectomies with right L4-5 microdiscectomy. Reviewed, dictated and finalized at location O. DRIVER IMPRESSION: Fluoroscopy used during L3-4, L4-5 laminectomies with right L4-5 mi crodiscectomy.
--- OUTSIDE RECORDS SUMMARY | 2025-09-28 01:23 | XMS_ITS | Encounter Summary ---
Author Organization [facility] Address [address] [place] [address] Care Team Providers Care Core Blower Name Role Phone Karthikeyan Perez MD Primary Care Provider [phone]- [phone] Alexis Penn MD Unavailable [phone] Encounter Details Date Type Department Care Team (Late st Contact Info) Description 01/24/2020 Hospital Follow-up Call [facility] [place] [address] Sasha Novak, Cook Cashier Food Prep Social History Tobacco Use Types Packs/Day Years Used Date Smoking Tobacco: Former Cigarettes Smokeless Tobacco: Never Sex and Gender Information Value Date Recorded Sex Assigned at Male 01/04/2025 1:10 PM PYRIDINE OPERATOR Legal Sex Male 8:26 PM CDT Gender [...] 1:00 AM CDT Michelle Orellana RN Active documented as of this encounter Mental Status * Because of a physical, mental, or emotional condition, do you have serious difficulty concentrating, remembering, or making decisions? Answer Entry Date Author Status No 01/20/2020 1:00 AM CDT Michelle Orellana RN Active documented in this encounter Plan of Treatment Upcoming Encounters Date Type Department Care Team (Late st Contact Info) Description 01/04/2026 2:00 PM PYRIDINE OPERATOR Appointment [facility] Non Invasive Cardiology ONE [facility] [place] [address] Ginny Rahman FNP 3 [facility] [address] [place] [address] 01/10/2026 1:45 PM CDT Office Visit [facility] THREE [facility], [address] [place] [address] Alexis Penn MD Three [facility]. [address] [place] [address] Ginny Rahman FNP 3 [facility] [address] [place] [address] 01/26/2026 10:40 AM CDT Office Visit [facility] Mult[facility]ialty Care - [facility] 3 [facility], [address] [facility] [place] [id number] Elroy Stout MD 3 [facility] [place] [address] 03/13/2026 1:20 PM CDT Office Visit [facility] Mult[facility]pec[facility]ty Care - [facility] 3 [facility], [address] [place] [address] Vivek Bolivar MD 3 [facility] [place] [address] documented as of this encounter Visit Diagnoses Not on filedocumented in this encounter Care Teams Core Blower Relationship Specialty Start Date End Date Karthikeyan Perez MD PCP - General FAMILY PRACTICE 01/22/20 Alexis Penn MD Three [facility]. [address] [place] [address] Consulting Physician CARDIOVASCULAR DISEASE 07/17/23 documented as of this encounter
--- OUTSIDE RECORDS SUMMARY | 2025-09-28 01:23 | XMS_ITS | Clinical Summary ---
Author Organization [facility] Address [address] [place] [address] Care Team Providers Care Rn Care Transition Name Role Phone Karthikeyan Perez MD Primary Care Provider [phone] Allergies Active Allergy Reactions Criticality Noted Date [...] hypothyroidism TAKE 1 TABLET(112 MCG) BY MOUTH NEUROLOGY NURSE BEFORE BREAKFAST 90 tablet 1 5 Active [...] Description 06/29/2025 11:40 AM CDT Office Visit [facility] Endocrinology Metabolism and Lipid [address] [facility] Medicine 13th [place] [address] [place] [address] Lalitha Lancaster MD BMI 34.0-34.9,adult (Primary Dx); Iatrogenic hypothyroidism from Last 3 Months Surgical History Surgery Date Site/Laterality Comments RI TONSILLECTOMY & ADENOIDEC LIANA <AGE 14 Tonsillectomy [...] on file Legal Sex Male 3:13 PM SURVEILLANCE SENSOR OPERATOR Gender Identity Not on file Sexual Orientation Not on file Last Filed Vital Signs Vital Sign Reading Time Taken Comments Blood Pressure 142/78 06/29/2025 11:45 AM CDT Pulse 103 06/29/2025 11:45 AM CDT Temperature 36.9 C (98.4 F) 06/29/2025 11:45 AM CDT Respiratory Rate - - Oxygen Saturation 96% 11/12/2017 11:40 AM SURVEILLANCE SENSOR OPERATOR Inhaled Oxygen Concentration - - Weight 102.1 [...] 65+ Completed 08/03/2019, 07/05 Insurance AET MEDICARE [facility] MEDICARE ADVANTAGE Care Teams Rn Care Transition Relationship Specialty Start Date End Date Karthikeyan Perez MD PCP - General 04/24/17
--- OUTSIDE RECORDS SUMMARY | 2025-09-28 01:23 | XMS_ITS | Clinical Summary ---
Author Organization [facility] Address [address] [place] [address] Care Team Providers Care Animal Keeper Name Role Phone Karthikeyan Perez MD Primary Care Provider [phone] Alexis Penn MD Unavailable [phone] Allergies No known active allergies Medications atorvastatin [...] (06/13/2023): Added automatically from request for surgery [id number] Difficulty swallowing 01/29/2023 Overview (01/29/2023): Added automatically from request for surgery [id number] Tachycardia 04/28/2020 Overview (06/19/2021): Last Assessment & [...] Encounters Date Type Department Care Team Description 09/23/2025 2:04 PM QUALITY ENG - 09/23/2025 11:59 PM QUALITY ENG Hospital Encounter [facility] [place] [address] London Cooper MD McPherson, Abigail E, PT Discharge Disposition: Home or Self Care (Routine Discharge) 09/23/2025 Travel 09/21/2025 1:22 PM QUALITY ENG - 09/21/2025 11:59 PM QUALITY ENG Hospital En[facility] [place] [address] London Cooper MD Lewis, Molly A, ORDERLIES TEACHER Discharge Disposition: Home or Self Care (Routine Discharge) 09/21/2025 Travel 09/16/2025 2:07 PM QUALITY ENG - 09/16/2025 11:59 PM QUALITY ENG Hospital Encounter [facility] [place] [address] London Cooper MD McPherson, Abigail E, PT Discharge Disposition: Home or Self Care (Routine Discharge) 09/16/2025 Travel 09/14/2025 3:36 PM QUALITY ENG - 09/14/2025 11:59 PM QUALITY ENG Hospital Encounter [facility] [place] [address] London Cooper MD Ratermann, Madeline R, DPT Discharge Disposition: Home or Self Care (Routine Discharge) 09/14/2025 Travel 09/13/2025 Telephone [facility] THREE [facility] [address] [place] [address] Alexis Penn MD Surgical Clearance 09/12/2025 1:40 PM QUALITY ENG Office Visit [facility] [address] [place] [address] Vivek Bolivar MD Follow Up 09/12/2025 Travel 09/08/2025 2:11 PM QUALITY ENG - 09/08/2025 11:59 PM QUALITY ENG Hospital Encounter [facility] [place] [address] London Cooper MD McPherson, Abigail E, PT Discharge Disposition: Home or Self Care (Routine Discharge) 09/08/2025 Travel 08/31/2025 2:09 PM CDT - 08/31/2025 11:59 [place] [address] London Cooper MD Lewis, Molly A, ORDERLIES TEACHER Discharge Disposition: Home or Self Care (Routine Discharge) 08/31/2025 Travel 08/29/2025 2:10 PM CDT - 08/29/2025 11:59 [place] [address] London Cooper MD Witte, Lauren E, ORDERLIES TEACHER Discharge Disposition: Home or Self Care (Routine Discharge) 08/29/2025 Travel 08/26/2025 2:13 PM CDT - 08/26/2025 11:59 PM [place] [address] London Cooper MD Lewis, Molly A, ORDERLIES TEACHER Discharge Disposition: Home or Self Care (Routine Discharge) 08/26/2025 Travel 08/24/2025 1:53 PM CDT - 08/24/2025 11:59 PM [place] [address] London Cooper MD Lewis, Molly A, ORDERLIES TEACHER Discharge Disposition: Home or Self Care (Routine Discharge) 08/24/2025 Travel 08/11/2025 1:24 PM CDT - 08/11/2025 11:59 PM [place] [address] London Cooper MD Witte, Lauren E, ORDERLIES TEACHER Discharge Disposition: Home or Self Care (Routine Discharge) 08/11/2025 Travel 08/08/2025 2:12 PM CDT - 08/08/2025 11:59 PM CDT Hospital Encounter [facility] [place] [address] London Cooper MD Witte, Lauren E, ORDERLIES TEACHER Discharge Disposition: Home or Self Care (Routine Discharge) 08/08/2025 Travel 08/04/2025 3:41 PM CDT - 08/04/2025 11:59 [place] [address] Mary Godfrey, PT Discharge Disposition: Home or Self Care (Routine Discharge) 08/04/2025 Travel 08/03/2025 Telephone [facility] [address] [place] [address] Sharan Jean Baptiste PA Results 08/02/2025 Telephone [facility] Orthopedic & Sports [facility] [address] [place] [address] London Cooper MD Results 07/22/2025 12:39 PM CDT - 07/22/2025 11:59 PM [place] [address] London Cooper MD McPherson, Abigail E, PT Discharge Disposition: Home or Self Care (Routine Discharge) 07/22/2025 11:30 AM CDT - 07/22/2025 12:38 PM CDT Hospital Encounter [facility] [address] London Cooper MD Discharge Disposition: Home or Self Care (Routine Discharge) 07/22/2025 Travel from Last 3 Months Immunizations Immunization Administration [...] (Prevnar 13) 07/29/2018 Shingrix 06/30/2019,05/03/2019 Zoster (Zostavax) 09014 Unt/0.65Ml 06/30/2019,,08/05/2017 Family History Medical History Relation [...] Sex Assigned at Male 01/04/2025 1:10 PM QUALITY ENG Legal Sex Male 8:26 PM CDT Gender Identity Not on file Sexual Orientation Straight 02/11/2022 8: 14 AM CDT Last Filed Vital Signs Vital Sign Reading Time Taken Comments Blood Pressure 138/84 09/12/2025 1:34 PM QUALITY ENG Pulse 90 09/12/2025 1:34 PM QUALITY ENG Temperature 36.8 C (98.3 F) 09/12/2025 1:34 PM QUALITY ENG Respiratory Rate 17 09/08/2023 1:14 PM QUALITY ENG Oxygen Saturation 99% 09/12/2025 1:34 PM QUALITY ENG Inhaled Oxygen Concentration - - Weight 105.3 kg (232 lb 3.2 oz) 09/12/2025 1:34 PM QUALITY ENG Height 175.3 cm (5' 9) 09/12/2025 1:34 PM QUALITY ENG Body Mass Index 34.29 09/12/2025 1:34 PM QUALITY ENG Plan of Treatment Upcoming Encounters Date Type Department Care Team (Late st Contact Info) Description 01/04/2026 2:00 PM QUALITY ENG Appointment [facility] Non Invasive Cardiology [address] [facility] [place] [address] Ginny Rahman FNP [address] [facility] [address] [place] [address] 01/10/2026 1:45 PM CDT Office Visit [facility] THREE [facility], [address] [place] [address] Alexis Penn MD Three [facility]. [address] [place] [address] Ginny Rahman FNP 3 [facility] [address] [place] [address] 01/26/2026 10:40 AM CDT Office Visit [facility] Care - [facility] [address] [facility], [address] [place] [address] Elroy Stout MD [address] [place] [address] 03/13/2026 1:20 PM CDT Office Visit [facility] - [facility] [address] [facility], [address] [place] [phone] Vivek Bolivar MD [address] [place] [address] Health Maintenance Due Date Last Done Comments Hepatitis C 1963 DTaP, Tdap and Td Vaccines (1 - Tdap) 1966 Annual Medicare Wellness Visit 2012 RSV Immunization or 60+ Years (1 - 1-dose 75+ series) 2022 PHQ-2 (Physician [place]) 11/03/2024 12/03/2023 COVID-19 Vaccine ( season) 2025 [...] Gilliland RN Medical Devices Implanted Type Area Food Service Cashier Device Identifier Shelf Expiration Date Model / Serial / Lot Shell Acetabular Depuy 56mm - [id number] Implanted:Qty : 1 on 07/31/2023 by London Cooper MD at [facility] Hip Components Right: Hip DEPUY [id number] 05/02/2033 [id number] / / [id number] Liner Depuy Acetabular Altrx Neut 36x56 - [id number] Implanted:Qty : 1 on 07/31/2023 by London Cooper MD at [facility] Hip Components Right: Hip DEPUY [id number] 05/02/2028 [id number] / / [id number] Actis Femoral Stem Implanted:Qty : 1 on 07/31/2023 by London Cooper MD at [facility] Hip Components Right: Hip DEPUY SYNTHES [id number] 12/31/2032 [id number] / / [id number] Head Depuy Femoral Delta 36mm +1.5 - [id number] Implanted:Qty : 1 on 07/31/2023 by London Cooper MD at [facility] Hip Components Right: Hip DEPUY [id number] 07/03/2028 [id number] / / [id number] Procedures Procedure Name Priority Date/Time Associated Diagnosis Comments MRI LUMB SPINE WO CON Routine 07/22/2025 12:28 PM CDT Lumbar radiculopathy from Last 3 Months Results * MRI [...] individual levels as above. Ordered By: LONDON COOPER Interpreted By: Dean Moore MD, 08/02/2025 4:01 PM Narrative 08/02/2025 4:[address] [address] Exam: MRI lumbar spine without contrast Exam [...] spinal. L3-L4: Disc desiccation, posterior centered narrowing. Qwrp-[id number] endplate spurring. Trace retrolisthesis. Dorsal epidural fat [...] Procedure Note Dean Moore MD - 08/02/[address] [address] Exam: MRI lumbar spine without contrast Exam [...] spinal. L3-L4: Disc desiccation, posterior centered narrowing. Fmvo-im-vbwmkqdjvosdfzym spurring. Trace retrolisthesis. Dorsal epidural fat prominence.Minimal [...] with individual levels asabove. Ordered By: LONDON COOPER Interpreted By: Dean Moore MD, 08/02/2025 4:01 PM London Cooper MD MRI Final Result from Last 3 Months Insurance Advance Directives * Full Code (Latest Code Status on File) Date Activated Date Inactivated Comments 08/04/2023 11:28 AM * Full Code Date Activated Date Inactivated Comments 07/31/2023 3:05 PM 08/03/2023 12:23 PM * Full Code Date Activated Date Inactivated Comments 01/24/2020 1:16 PM 03/20/2023 6:29 AM * Full Code Date Activated Date Inactivated Comments 01/20/2020 12:36 AM 01/22/2020 1:33 PM Care Teams Animal Keeper Relationship Specialty Start Date End Date Karthikeyan Perez MD PCP - General FAMILY PRACTICE 01/22/20 Alexis Penn MD [address] [address] Consulting Physician CARDIOVASCULAR DISEASE 07/17/23
--- OUTSIDE RECORDS SUMMARY | 2025-09-28 01:23 | XMS_ITS | Encounter Summary ---
Author Organization [facility] Address [address] [place] [address] Care Team Providers Care Workforce Development Assistant Name Role Phone Karthikeyan Perez MD Primary Care Provider [phone] Alexis Penn MD Unavailable [phone] Encounter Details Date Type Department Care Team (Late st Contact Info) Description 06/17/2022 Abstract [facility] [address] Ajay Davila MA Social History Tobacco Use [...] Sex Assigned at Male 01/04/2025 1:10 PM TICKET BROKER Legal Sex Male 8:26 PM CDT Gender [...] Date Author Status No 01/20/2020 1:00 AM DAMIANT Michelle Orellana RN Active documented in this encounter Plan of Treatment Upcoming Encounters Date Type Department Care Team (Late st Contact Info) Description 01/04/2026 2:00 PM TICKET BROKER Appointment [facility] [place] [address] Ginny Rahman FNP [address] [place] [address] 01/10/2026 1:45 PM CDT Office Visit [facility] THREE [facility] [address] [place] [address] Alexis Penn MD Three [facility]. [facility] [address] [place], [place] [address] Ginny Rahman FNP 3 [facility] [place] [address] [place] [address] 01/26/2026 10:40 AM CDT Office Visit [facility] Mult[facility] - [facility] [address] [facility], [address] [place] [phone] Elroy Stout MD [address] [place] [address] 03/13/2026 1:20 PM CDT [facility] [address] [facility], [address] [place] [phone] Vivek Bolivar MD [address] [place] [address] documented as of this encounter Procedures Procedure [...] Result - Final * LIPID PANEL (01/05/2025) Pathologist [facility] CHOLESTEROL 87 TRIGLYCERIDES 64 HDL 43 LDL (CALCULATED) 30 Default History Genericprovider LABORATORY Edited Result - Final * CBC, MANUAL DIFF (01/05/2025) [facility] WBC 8.3 HGB 13.5 HCT 39.9 PLT 273 Default History Genericprovider LABORATORY Edited Result - Final * THYROID STIM HORMONE TSH (01/05/2025) [facility] TSH 0.946 Default History Genericprovider LABORATORY Edited Result - Final * CK (CPK) (06/14/2022) [facility] CPK 85 06/14/2022 us Doc [facility] Abstract LABORATORY Final Result * LIPID PANEL (06/14/2022) [facility] CHOLESTEROL 84 HDL 41 TRIGLYCERIDES 74 LDL (CALCULATED) 27 06/14/2022 us Doc [facility] Abstract LABORATORY Final Result * CBC (OUTSIDE LAB) (06/14/2022) [facility] WBC 5.7 HGB 14.8 HCT 43.5 PLT 222 06/14/2022 us Doc [facility] Abstract LAB-OUTSIDE/ABSTRACTED Final Result * COMPREHENSIVE METABOLIC PANEL (06/14/2022) [facility] SODIUM S/P/B 138 POTASSIUM S/P/B 4.1 CO2 [...] on filedocumented in this encounter Care Teams Workforce Development Assistant Relationship Specialty Start Date End Date Karthikeyan Perez MD PCP - General FAMILY PRACTICE 01/22/20 Alexis Penn MD [address] [address] Consulting Physician CARDIOVASCULAR DISEASE 07/17/23 documented as of this encounter
[2025-09-28] MEDS: LACTATED RINGERS 1,000 ML 30 ML IV CONT ×2 (06:00→10:30)
--- NOTE | 2025-09-28 07:16 | WPDHPUPDATE1 ---
History and Physical Update Update Date/Time: 09/28/25 07:16 History and Physical has been reviewed, including an updated exam of the patient. There are NO changes in the patient's condition. Risks, benefits, and alternatives have been discussed and questions answered. Patient agrees to proceed with procedure.
--- NOTE | 2025-09-28 07:30 | WPDANESEPP ---
Anes - Eval Pre Procedure Procedure: Operation Date: 09/28/25 07:30 Proposed Procedures p L 3-4, L4-5 Laminectomies, Right L4-5 Microdiscectomy - Nadeen Lainez MD Date/Time: 09/28/25 07:30 Pre Op Diagnosis: Lumbar disc herniation with Radiculopathy Patient Data Age: 79 Gender: M Height: 1.7 m Weight: 102.7 kg Last Vital Signs Temp 36.6 C 09/28/25 06:00 Pulse 77 09/28/25 06:00 Resp 16 09/28/25 06:00 BP 130/80 09/28/25 06:00 Pulse Ox 99 09/28/25 06:00 O2 Del Method Room Air 09/28/25 06:00 Allergies Allergy/AdvReac Type Severity Reaction Status Date / Time No Known Allergies Allergy Verified 09/28/25 06:48 Home Medications ?Medication ?Instructions ?Recorded ?Confirmed ?Type aspirin 81 mg tablet,delayed 81 mg PO DAILY #1 tablet 01/24/20 09/28/25 Rx release (Enteric Coated Aspirin) levothyroxine 112 mcg tablet 112 mcg PO QAM 07/12/24 09/28/25 History finasteride 5 mg tablet 5 mg PO DAILY #90 tabs 10/18/24 09/15/25 Rx solifenacin 10 mg tablet See Rx Instructions .Route 10/18/24 09/15/25 Rx .COMPLEX #90 tabs tamsulosin 0.4 mg capsule 0.4 mg PO DAILY #90 caps 10/18/24 09/15/25 Rx hydrochlorothiazide 25 mg tablet See Rx Instructions .Route 04/13/25 09/15/25 Rx .COMPLEX #90 tabs lisinopril 40 mg tablet See Rx Instructions .Route 04/13/25 09/15/25 Rx .COMPLEX #90 tabs omeprazole 40 mg capsule,delayed 40 mg PO DAILY #90 caps 06/17/25 09/15/25 Rx release amlodipine 5 mg tablet 5 mg PO DAILY #90 tabs 07/18/25 09/28/25 Rx atorvastatin 40 mg tablet 40 mg PO DAILY #90 tabs 07/18/25 09/15/25 Rx Patient hx anesthesia problems: none Family hx anesthesia problems: none Results Review: All pre-operative results and documents have been reviewed as part of the pre-operative evaluation. [facility] Past Medical History Medical History Obesity (BMI 30.0-34.9) Stroke (~01/19/20) Expressive aphasia Infarction of left basal ganglia Surgical History Surgical History H/O total hip arthroplasty RIght 2022 H/O thyroidectomy (~2017) S/P tonsillectomy (~1954) Family History Family History Father Hypertension Family history of Alzheimer's disease Family history of hearing loss Sibling Hypertension Patient's brother is in good health Family history of liver disease, Onset Age: 42 Melanoma Mother Patient's mother is in good health Grandparent Cerebrovascular accident Other AAA (abdominal aortic aneurysm) Social History Social History (Updated 09/01/25 @ 15:37 by Sarah Sahni MA) Smoking packs per day: 1 Smoking cigarettes per day: 20.0 Years smoked: 25 Smoking pack-years: 25.00 Smoking status: Former smoker Tobacco type: cigarettes Smoking end date: 05/03/91 Alcohol intake: current Drinks per week: 3 Alcohol use details: beer Substance use: never Substance use type: does not use Do You Feel Safe in your Home?: Yes Lack of Transportation: No Lack of Food: Never True Current Housing: I Have Housing Concerned About Future Housing: No Difficulty Paying Gas/Electric Bills: No Difficulty Paying for Meds: No Currently Unemployed: No Education: High School Diploma/GED Difficulty w/ Childcare or Family Care: No Living arrangements: other Additional living arrangements comments: [facility] Spiritual care concerns: No Exam Day of Procedure 09/28/25 07:30
[2025-09-28] MEDS: ceFAZolin 2 GM in SODIUM CHLORIDE 0.9% IV 50 ML 100 ML IVPB ×2 (07:39→16:47)
--- NOTE | 2025-09-28 08:13 | P.PNAN_ITS ---
Anes - Eval Final PreProcedure Day of Procedure 09/28/25 08:13 Patient weight: obese Heart: regular rate and rhythm Airway: Mallampati scale class II Neurological: alert and oriented Last oral intake: >/= 8 hours ASA classification: III Emergent: no Anesthetic plan: proceed Anesthesia type and monitoring: general Results Review: All pre-operative results and documents have been reviewed as part of the pre- operative evaluation. Informed Consent: The patient's anesthetic plan and its attendant risks and benefits were discussed with the patient/family/POA. Questions were solicited and answers provided to the satisfaction of the patient/family/POA.
--- NOTE | 2025-09-28 10:32 | W.PM.PROC2 ---
Procedure Note - Detailed Date of Procedure 09/28/25 Pre-op Diagnosis Lumbar disc herniation with Radiculopathy Post-op Diagnosis Same Procedure Performed 1. L3-4, L4-5 laminectomies and medial facetectomies 2. Right L4-5 microdiskectomy 3. Use of microscope for microsurgical dissection 4. Use of C-arm for fluoroscopy Surgeon Nadeen Lainez MD Woodworking Machine Setter Jalen Anesthesia General Description of Procedure The patient was brought to the operating room, and general anesthesia was induced. The patient was placed prone on the Casey frame, and all pressure points were padded. Compression devices were placed on the patient's calves. The skin was cleaned with alcohol. The C-arm was brought onto the field to localize the appropriate disc space and assist with incisional planning. The area was prepped and draped in usual sterile fashion. A time out was conducted, and pre-operative antibiotics were administered. Local anesthesia was injected into the planned incision. A midline skin incision was made with a 10-blade scalpel, and dissection was carried down with the monopolar cautery to open the fascia. Once the spinous processes were located, a subperiosteal dissection was performed to expose the laminae bilaterally. A self-retaining retractor was placed. An upgoing currette was placed under a lamina, and the C-arm was brought in to confirm the correct level. The spinous processes of L3 and L4 were removed with a Leksell. The microscope was draped and brought into the field. Under microscopic visualization, the laminae of L3 and L4 were thinned bilaterally with the high-speed drill until the ligamentum flavum was encountered. A currette was used to separate the ligamentum from the laminae. The remaining laminae were removed with a kerrison rongeur. The ligamentum was then from the dura with an upgoing currette and was removed with a kerrison as well. On the right side at L4-5, the dura was elevated from the posterior longitudinal ligament, and the disc herniation was noted under the posterior longitudinal ligament. The dura was retracted with a nerve root retractor, and the PLL was opened with a nerve hook allowing easy removal of disc material, some of which was calcified. A Woodsen was used to verify adequate decompression at the cranial and caudal aspects of the decompression. Hemostasis was ensured with Floseal and cottonoid patties, and the area was copiously irrigated. No evidence of CSF leak was noted. A hemovac drain was placed and tunneled inferiorly to the left. The muscle was loosely approximated with 0-Vicryl. The fascia was closed with 0-Vicryl in an interrupted fashion. The soft tissue was again copiously irrigated. The dermis was closed with 2-0 and 3-0 interrupted Vicryl. The skin was closed with 4-0 subcuticular monocryl. Skin glue was placed over the incision. The drain was secured with a 3-0 nylon and covered with sterile dressings. The patient was returned supine on the stretcher, extubated, and transferred to PACU without incident. Billing code: [id number], [id number], [id number] Estimated Blood Loss 200 Drains Yes Packing No Pathology None sent Complications None Condition Stable Disposition PACU [facility] Billing Surgery - Charge Forward: Surgery Billing
[2025-09-28] MEDS: fentaNYL CITRATE INJ (*CRX) 100 MCG/2 ML VIAL 25 MCG IV PUSH ×4 (11:13→11:35)
[2025-09-28] MEDS: ACETAMINOPHEN 500 MG TABLET 1000 MG PO ×2 (12:00→17:33)
--- NOTE | 2025-09-28 12:31 | ADMGEN ---
This patient, Sawyer Hutson, was admitted to 3 [facility] Surg Room 315-02. Patient/family oriented to hospital policies and general routines including ID bracelet, bed and alarms, visiting hours, pain management, procedures, bathroom and other care routines, personal items, smoking policy, room service/diet, and visiting hours. Information on how to activate the Rapid Response Team has been discussed. Patient/Family are encouraged to report perceived risks to care and to ask questions if they do not understand what they are told or what they should do. received report from Kath
[2025-09-28] MEDS: DOCUSATE SODIUM 100 MG CAPSULE PO (20:45)
[2025-09-28] MEDS: PANTOPRAZOLE 40 MG TABLET PO (20:45)
[2025-09-28] MEDS: SODIUM CHLORIDE 0.9% IV 1,000 ML 100 ML IV CONT (20:47)
[2025-09-29] MEDS: ACETAMINOPHEN 500 MG TABLET 1000 MG PO ×2 (00:17→06:21)
[2025-09-29] MEDS: ceFAZolin 2 GM in SODIUM CHLORIDE 0.9% IV 50 ML 100 ML IVPB ×2 (00:17→09:34)
[2025-09-29 03:07] VITALS: BP 117/63; PULSE 66; RESP 16; TEMP 36.6; O2SAT 100
[2025-09-29] MEDS: LEVOTHYROXINE SODIUM 112 MCG TABLET PO (06:21)
[2025-09-29 07:07] VITALS: BP 134/73; PULSE 59; RESP 16; TEMP 36.3; O2SAT 100
[2025-09-29] MEDS: PANTOPRAZOLE 40 MG TABLET PO (09:35)
[2025-09-29] MEDS: SOLIFENACIN 5 MG TABLET 10 MG PO (09:35)
[2025-09-29] MEDS: DOCUSATE SODIUM 100 MG CAPSULE PO (09:35)
[2025-09-29] MEDS: ATORVASTATIN 40 MG TABLET PO (09:35)
[2025-09-29] MEDS: TAMSULOSIN HCL 0.4 MG CAPSULE PO (09:35)
[2025-09-29] MEDS: FINASTERIDE 5 MG TABLET PO (09:35)
[2025-09-29 11:07] VITALS: BP 143/68; PULSE 54; RESP 16; TEMP 36.3; O2SAT 81
== END 2025-09-29 12:05 | disposition home or self-care (01) ==
LOC: ANHSURGERY 05:53 → ANH3MEDSUR 12:08
PROVIDERS: PCP Family Medicine; Visit Provider Neurological Surgery
PROC: (CPT 63005; principal; 2025-09-28 07:30)
DX: M51.16 Intervertebral disc disorders with radiculopathy, lumbar region (principal); M48.062 Spinal stenosis, lumbar region with neurogenic claudication; M21.371 Foot drop, right foot; E66.9 Obesity, unspecified; Z68.35 Body mass index [BMI] 35.0-35.9, adult; Z79.82 Long term (current) use of aspirin; Z98.890 Other specified postprocedural states; Z87.891 Personal history of nicotine dependence; Z86.73 Personal history of transient ischemic attack (TIA), and cerebral infarction without residual deficits; Z80.8 Family history of malignant neoplasm of other organs or systems
CPT/HCPCS: 63047; 63048; 97161; 97166; 97530; 97535; 99199; J0690; A9270; J1100; J1171; J2003; J2250; J2405; J2704; J3010; J7030; J7120